=== PATIENT | male | born 1965 | race Caucasian/White ===

== ENCOUNTER 2016-06-27 05:48 | Day surgery (SDC) | payer OTHER ==
[2016-06-27] VITALS (14 sets, daily range): BP systolic 118–155; BP diastolic 68–98; PULSE 67–95; RESP 13–19; O2SAT 96–98
[~2016-06-27] VITALS: Ht 170.2 cm; Wt 130.4 kg
[2016-06-27] MEDS: Lactated Ringer's 1,000 ML IV SCH ×3 (05:00→07:32)
[~2016-06-27 05:48] MED LIST: LISI-567 PO
[2016-06-27] MEDS ORDERED: Ondansetron 2 mg/mL 2 mL Inj ONE (05:49)
[2016-06-27] MEDS ORDERED: Dexamethasone 4 mg/mL Inj ONE (05:49)
[2016-06-27] MEDS ORDERED: fentaNYL-PF 50 mCg/mL 2 mL Inj ONE (05:49)
[2016-06-27] MEDS ORDERED: Lidocaine PF 1% 30 mL Inj ONE (05:49)
[2016-06-27] MEDS ORDERED: Propofol 10,000 mCg/mL 20 mL Inj ONE (05:49)
[2016-06-27] MEDS ORDERED: Vancomycin Inj 1,000 MG in IV Premix 1 EACH IV ONE (06:00)
[2016-06-27] MEDS ORDERED: CeFAZolin Inj 3 GM in IV Premix 1 EACH IV ONE (06:00)
--- NOTE | 2016-06-27 07:19 | PCM.HPANE ---
Patient Data Date of Service: June 27, 2016 Surgeon Admitting Provider: Attending Provider:Jeff Celis DO Primary Care Physician:Other,Physician Other Provider:Barney Fragoso Anesthesia Reason for Visit Right Knee Medial Arthritis Ht/WT & BMI Height (Feet): 5 Height (Inches): 7.00 Weight (Kilograms): 120.8 Body Mass Index 41.00 Allergies Coded Allergies: Penicillins (Verified Allergy, Unknown, UNKNOWN, 12/31/15) Past Anesthesia History Anesthesia History: Denies:: Abnormal Airway, Anesthesia Reactions, Difficult Intubation, Fam Anesthesia Reaction, Fam Malignant Hypertherm, Malignant Hyperthermia Diabetes History Hx Diabetes?: No MRSA MRSA: No Medications Hypertension Medication: Yes Home Meds Incl Beta Toshia: No Reported Medications Lisinopril 20 Mg [id number] Mg PO DAILY 30 Days Ref 0 06/22/16 Discontinued Reported Medications Lisinopril 20 Mg [id number] Mg PO DAILY 30 Days Ref 0 12/31/15 History History of ENT Problems?: No HEENT History: Denies:: Abnormal Airway Difficult Intubation Denture Type: None Teeth Condition: Within Normal Limits Hx of Heart Problems?: Yes Cardiovascular History: Positive for:: Hypertension Denies:: AICD Heart Murmur Irregular Heartbeat Pacemaker Valvular Heart Disease Hx of Respiratory Problem?: No Respiratory History: Denies:: Asthma COPD Emphysema Use of C-PAP Machine Hx Neurologic Problems?: No Neurological History: Denies:: CVA Multiple Sclerosis Parkinson's Disease Seizures Hx of GI Problems?: No Hx of Problems?: No Genitourinary History: Denies:: Kidney Stones Urinary Tract Infection Male Hx: Denies:: Prostate Problems Scrotal Mass Testicular Surgery Skin History: Denies:: History Skin Disorders? Pressure Ulcers Hx Musculoskeletal Problems?: Yes Musculoskeletal History: Positive for:: Back Injury (lami C6-7) Degenerative Joint Joint Replacement (left uni knee done here 12/2015) Musculoskeletal Trauma (right knee current admission problem) Osteoarthritis Hx of Psycho/Social Problems?: No Hx Surgeries?: Yes (CARPAL TUNNELS, LASIK, C6 LAMINECTOMY, left uni knee) Hx Any Other Health Problems?: Yes Other History: Denies:: Cancer Endocrine Disease Hospitalization Thyroid Disease History Blood Transfusions: Denies:: Blood Transfusions Hx Diabetes: No Hx Alcohol Use: NoHx Substance Use: No Smoking Status: Never Smoker Have You Smoked inLast 12 mo: No Stop/Bang S-Snoring: Do You Snore Loudly: Yes P-Blood Pressure: treated: Yes B- Body Mass Index > 35 kg/m2: Yes A- Age over 50: Yes N- Neck Large Circumference: Yes G- Gender Male: Yes PATSY Risk Assessment: High Risk, =/>3 Yes Risk Assessment Category Category 1A: Patient has history of documented sleep apnea, and HAS NOT received any narcotic, sedative or anesthesia administration during this stay. Category 1B: Patient has history of documented sleep apnea, and HAS received any narcotic , sedative or anesthesia administration during this stay Category 2: Patient has SUSPECTED Obstructive Sleep Apnea, and HAS received any narcotic , sedative or anesthesia administration during this stay. Category 3: Patient has SUSPECTED Obstructive Sleep Apnea and HAS NOT received narcotic, sedative or anesthesia administration during this stay. Category 4: Outpatient in Procedural Areas with known sleep apnea or who screen positive for High Risk via the STOP/BANG questionnaire. Exam Exam Vital Signs Vital Signs Date Time Temp Pulse Resp B/P Pulse Ox O2 Delivery O2 Flow Rate FiO2 06/27/16 06:26 36.9 67 16 127/79 97 Room Air General Appearance: Alert, Oriented X3, Cooperative, No Acute Distress HEENT/AIRWAY: MP 2 Lungs: Normal Air Movement Heart: Exam Unremarkable Meds/Labs/Diagnostics Admission Meds Current Medications Vancomycin/0.9 % Sod Chloride 1000 mg/Premix 200 ml @ 133.333 mls/hr PREOP ONCE IV Last administered on 06/27/16 06:22; Start 06/27/16 at 06:00; Stop at 07:29 Lactated Ringer's (Lr) 1,000 ml @ 120 mls/hr Q8H20M IV Last administered on 06:21; Start 06/27/16 at 05:00; Stop 06/27/16 at 13:19 Plan Impression Patient chart reviewed, patient interviewed and anesthestic plan with risks, benefits, and alternatives discussed, and informed consent obtained. ASA Physical Status: ASA2 Mod Systemic Disease Anesthetic Plan: GA Bene/Risks/Altern/Consents: Yes HP Complete Prior to Induction: Yes Eloy Quintero MD June 27, 2016 07:02
[2016-06-27] MEDS ORDERED: Bupivacaine Liposome 1.3% 20 mL Inj ONE (07:35)
[2016-06-27] MEDS ORDERED: Bupivacaine-MPF 0.5% W/EPI 30 mL Inj INFILTRATE ONE (07:45)
[2016-06-27] MEDS ORDERED: Bupivacaine Liposome 1.3% 20 mL Inj ARTICULAR ONE (07:45)
[2016-06-27] MEDS ORDERED: 0.9% Sodium Chloride 10 mL Inj INFILTRATE ONE (07:45)
[2016-06-27] MEDS ORDERED: Lactated Ringer's 1,000 ML IV SCH (07:57)
[2016-06-27] MEDS ORDERED: Lactated Ringer's 500 ML IV PRN (07:57)
[2016-06-27] MEDS ORDERED: MetoCLOpramide 5 mg/mL 2 mL Inj IVPUSH PRN (08:00)
[2016-06-27] MEDS ORDERED: Dexamethasone 4 mg/mL Inj IVPUSH PRN (08:00)
[2016-06-27] MEDS ORDERED: Labetalol 5 mg/mL 4 mL Inj IV PRN (08:00)
[2016-06-27] MEDS ORDERED: Ondansetron 2 mg/mL 2 mL Inj IVPUSH PRN ×2 (08:00→09:35)
[2016-06-27] MEDS ORDERED: Atropine 0.4 mg/mL Inj IVPUSH PRN (08:00)
[2016-06-27] MEDS ORDERED: HYDROmorphone 1 mg/mL Inj IVPUSH PRN ×2 (08:00→09:35)
[2016-06-27] MEDS ORDERED: EPHEDrine Sulfate 50 mg/mL Inj IVPUSH PRN (08:00)
[2016-06-27] MEDS ORDERED: Phenylephrine 10,000 mCg/mL Inj IVPUSH PRN (08:00)
[2016-06-27] MEDS ORDERED: diphenhydrAMINE 25 mg Capsule PO PRN (09:35)
[2016-06-27] MEDS ORDERED: Polyethylene Glycol (PEG) 17 Gm Powder PO PRN (09:35)
[2016-06-27] MEDS ORDERED: Magnesium Hydroxide 10 mL Oral Concentration PO PRN (09:35)
[2016-06-27] MEDS: fentaNYL-PF 50 mCg/mL 2 mL Inj IVPUSH PRN ×2 (10:06→11:15)
--- NOTE | 2016-06-27 10:09 | PCM.ANEP1 ---
Post Anesthesia Phase 1 PACU Phase 1 Assessment Date of Service: June 27, 2016 Vital Signs Vital Signs Date Time Temp Pulse Resp B/P Pulse Ox O2 Delivery O2 Flow Rate FiO2 06/27/16 09:55 90 13 149/88 98 Nasal Cannula 4 06/27/16 09:50 91 15 153/95 98 Nasal Cannula 4 06/27/16 09:45 36.5 88 14 155/81 98 Nasal Cannula 4 06/27/16 06:26 36.9 67 16 127/79 97 Room Air Anesthetic Administered: GA Level of Alertness: Sleepy, easy to arouse ADAN's with Equal Strength: Yes Pain: No Nausea or Vomiting: No Cardiovascular Function and Hy: Yes Oxygen Delivery: Simple Mask Lungs: Normal Air Movement Complications: No Eloy Quintero MD June 27, 2016 10:09
--- NOTE | 2016-06-27 10:25 | OP ---
[address] [address] OPERATIVE REPORT PATIENT: LAN PAUL : 1965 MR#: [id number] ADMIT: 06/27/2016 JOB ID: [id number] DATE OF SURGERY: 06/27/2016 PREOPERATIVE DIAGNOSIS(ES): Right knee medial compartment degenerative arthritis. POSTOPERATIVE DIAGNOSIS(ES): Right knee medial compartment degenerative arthritis. PROCEDURE: Right knee medial compartment UNI. SURGEON: Jeff Celis DO ANESTHESIA: General. VISITOR INFORMATION ASSISTANT: Gaby Benoit PA-C. INDICATIONS: The patient is a 50-year-old male with right knee medial compartment degenerative arthritis which has failed conservative measures, and he has had a good result with his left medial compartment knee arthroplasty and wished to proceed with the right unicompartmental arthroplasty. We discussed the risks, benefits, and possible complications of surgery. All questions were answered and he wished to proceed. PROCEDURE IN DETAIL: The patient was brought to the operating room. He was given a preoperative antibiotic and general anesthetic. The right lower extremity was sterilely prepped and draped. A tourniquet was used for hemostasis. An incision was made over the anteromedial knee and dissection was carefully carried through subcutaneous tissue. The quad tendon was released slightly at the VMO area leaving a cuff of tissue for repair. This was taken along the medial retinaculum and a small portion of the meniscus was removed as well as a portion of the fat pad. A small portion of the patella was also resected in order to gain exposure and the ZUK extramedullary cutting guide was placed parallel to the long axis of the tibia with standard resection sleeve. This was pinned into position taking care to ensure this was parallel to the long axis of the tibia and the distal femoral cut was performed. Next, the femoral cutting block was removed and the tibial cutting block was pinned into position. The vertical and horizontal cuts were performed and the wafers of bone were then removed. I then clipped 2 sides of the tibia, however it was a bit narrow and I did some additional resection vertically and then sized the femur and felt to be a size E. Placed the cutting block in position, pinned it in position, and the distal femoral cuts were performed as well as the lug holes. The tibia was then placed and the lug holes were drilled. The knee was trialed and was a bit tight in flexion. There was some osteophytes which were removed which assisted in attaining more balanced knee. I also added a slight amount of slope with some additional resection, freehand using the saw. The bony surfaces were then washed and dried, and the components were cemented into position beginning with the [employer] ZUK 4 tibia followed by the E femur and a 9 mm E poly. All excess cement was removed. The tourniquet was let down and electrocautery was used for hemostasis. The wound was then closed with #1 Surgilon to repair the medial retinaculum and quad tendon. The subcu was closed with 2-0 Vicryl and the skin was closed with a running subcuticular 3-0 V-Loc suture. A mixture of Exparel, Marcaine, and saline 20/20/20 was added as an adjunct local anesthetic. Sterile dressings were applied. Patient tolerated the procedure well. BLOOD LOSS: 50 cc. POSTOPERATIVE PROTOCOL: Have the patient weight bear to tolerance. Use walker for ambulation or cane as needed. He was given a prescription for Percocet to use for pain postoperatively.
--- NOTE | 2016-06-27 12:10 | DRSVH ---
PROCEDURE: X-RAY RIGHT KNEE, ONE OR TWO VIEWS ([id number]) INDICATIONS: post op TECHNIQUE: 3 view(s) of the knee acquired. COMPARISON: None. FINDINGS: Bones: Patient is status post right zafar-knee joint arthroplasty. Hardware components are in expect ed positions. Visualized bony structures are intact. Soft tissues: Overlying postoperative changes are noted. IMPRESSION: Expected post operative changes. Dictated by: Lilia Tapia M.D. on 06/27/2016 at 12:08 Approved by: Lilia Tapia M.D. on 06/27/2016 at 12:09
--- NOTE | 2016-06-27 12:30 | NUR ---
POSTOP Pt comes from PACU A&OX4 with no pain at this time. SEAN wrap over Rt knee with ice pack over. Toes pink and warm, sensation in tact, wiggles toes. RA 97%. at bedside. Care continues
[2016-06-27] MEDS: oxyCODONE-Acetamin 5-325 mg Tablet PO PRN ×2 (14:17→17:24)
--- NOTE | 2016-06-27 15:58 | NUR ---
Evaluation completed. Please go to "Notes" then click on "Assessments and Notes" (bottom left corner of screen). Then select appropriate discipline tab on top of screen.
[2016-06-27] MEDS: CeFAZolin Inj 3 GM in IV Premix 1 EACH IV SCH (16:09)
[2016-06-27] MEDS: 0.9% Sodium Chloride 1,000 ML IV SCH ×2 (16:09→19:34)
[2016-06-27] MEDS: Sodium Chloride LOK Flush 10 mL Syringe IV SCH ×2 (16:23→20:22)
[2016-06-27] MEDS: hydrOXYzine Pamoate 25 mg Capsule PO PRN (17:22)
--- NOTE | 2016-06-27 18:30 | NUR ---
Pain P: Patient c/o pain 6/10 in right knee. I:Gave pain medication and ice pack E: Patient states pain is 3/10 S: Bed down and locked, call light in reach, pt will call if needed
[2016-06-27] MEDS: Senna-Docusate 8.6-50 mg Tablet PO SCH (20:22)
[2016-06-28 00:26] VITALS: BP 103/64; PULSE 73; RESP 18; O2SAT 97
[2016-06-28] MEDS: CeFAZolin Inj 3 GM in IV Premix 1 EACH IV SCH (01:55)
[2016-06-28] MEDS: oxyCODONE-Acetamin 5-325 mg Tablet PO PRN ×3 (02:01→11:49)
[2016-06-28] MEDS: hydrOXYzine Pamoate 25 mg Capsule PO PRN ×2 (02:01→08:13)
--- NOTE | 2016-06-28 02:14 | NUR ---
Pain/Activity Pt states pain is 4-7/10, rec'd percocet and vistaril x1 dose with + effects, ice packs in place. States 4/10 is tolerable. Pt up ambulating halls this shift. Urinating well but has yet to pass gas.
[2016-06-28 04:50] VITALS: BP 109/63; PULSE 65; RESP 16; O2SAT 99
[2016-06-28] MEDS: 0.9% Sodium Chloride 1,000 ML IV SCH (05:00)
[2016-06-28 06:10] LABS: BASOPHILS % (AUTO) 0.1 % (0-3); EOSINOPHILS % (AUTO) 0.2 % (0-5); MONOCYTES % (AUTO) 10.5 % (4-12); Mean Corpuscular Hemoglobin 29.8 pg (27.0-35.0); Mean Corpuscular Volume 87.7 fL (81-100); NEUTROPHILS % (AUTO) 76.9 % (40-74); Platelet Count 295 bil/L (150-400)
[2016-06-28] MEDS ORDERED: Magnesium Hydroxide 10 mL Oral Concentration PO PRN (06:50)
--- NOTE | 2016-06-28 08:08 | PCM.PNORTH ---
Subjective Date of Service: June 28, 2016 Visit Information: Reason for Visit Right Knee Medial Arthritis Surgery/Surgery Date RIGHT MEDIAL UNIKNEE 06/27/16 Post-Op Day # 1 Date of Admission: Hospital Day # Subjective Patient complains of incisional pain. He has been up independently to the bathroom. He has walked the hallways with therapy. He feels he is doing quite well. This is his second knee surgery. Postop General: No Shortness of Breath, No Chest Pain, Good Appetite Pain Management: PO Objective Exam Objective Patient is seen sitting up in bed Vital Signs and I/O Vital Sign - Last Date Time Temp Pulse Resp B/P Pulse Ox O2 Delivery O2 Flow Rate FiO2 06/28/16 04:50 36.9 65 16 109/63 99 Room Air 06/27/16 11:17 2 Intake and Output 06/27/16 06/27/16 06/28/16 Cumulative From/Thru 15:00 23:00 07:00 06/22/16 10:19 - 06/28/16 05:27 Intake Total 800 ml 800 ml 1275 ml 2875 ml Output Total 50 ml 800 ml 1430 ml 2280 ml Balance 750 ml 0 ml -155 ml 595 ml Intake Oral 800 ml 1200 ml 2000 ml IV Total 800 ml 75 ml 875 ml Output Urine Total 800 ml 1430 ml 2230 ml Estimated Blood Loss 50 ml 50 ml # Bowel Movements 0 0 0 Lab & Micro Results Laboratory Tests Test 06/28/16 05:30 White Blood Count 16.9th/mm3 (3.8-10.1) Red Blood Count 4.57mil/mm3 (4.40-5.80) Hemoglobin 13.6g/dL (13.8-17.2) Hematocrit 40.1% (41.0-50.0) Mean Corpuscular Volume 87.7fL (81-100) Mean Corpuscular Hemoglobin 29.8pg (27.0-35.0) Mean Corpuscular Hemoglobin Concent 33.9% (32.0-37.0) Red Cell Distribution Width 13.5% (12.3-15.4) Platelet Count 295bil/L (150-400) Neutrophils (%) (Auto) 76.9% (40-74) Lymphocytes (%) (Auto) 11.9% (14-46) Monocytes (%) (Auto) 10.5% (4-12) Eosinophils (%) (Auto) 0.2% (0-5) Basophils (%) (Auto) 0.1% (0-3) Sodium Level 135mEq/L (134-144) Potassium Level 4.7mEq/L (3.5-5.2) Chloride Level 99mEq/L (97-108) Carbon Dioxide Level 23mmol/L (18-29) Blood Urea Nitrogen 16mg/dL (6-24) Creatinine 0.93mg/dL (0.76-1.27) Estimat Glomerular Filtration Rate 91mL/min (>59) Glucose Level 118mg/dL (60-99) Calcium Level 8.7mg/dL (8.5-10.1) Result Diagram: 06/28/1652906/28/16529 General Appearance: Alert, Oriented X3, Cooperative, No Acute Distress Extremities: Distal Pulses Palpable, No Compartment Syndrom Noted, Thigh & Calf Soft/Nontender Postop Sensory Motor: Distal Motor Intact, NVI Distally SURGICAL WOUND : Wound Location/Description Surgical dressing is clean, dry and intact. Activity: Activity per PT, Ambulate with PT Catheters: None Assessment & Plan Impression Status post right knee medial unicompartmental arthroplasty Problems: Plan Weightbearing: Weightbearing as tolerated DVT prophylaxis: Enteric-coated aspirin 325 mg twice a day 6 weeks Physical therapy this morning for transfers, progressive ambulation, therapeutic exercise Wound care: Patient will change dressing tomorrow. Discharge plan: Discharge home today. Start outpatient physical therapy next week Discharge instructions reviewed with patient Follow-up plan: In 2 weeks at [facility] with SOREN for wound check and at [address] Celis with x-rays Pain Management: Percocet, Toradol, Vistaril VTE Prophylaxis: SCDs, Other (aspirin 325 mg twice a day) Resuscitation Status: CPR: Attempt Resuscitation [place] June 28, 2016 08:07
[2016-06-28] MEDS: Senna-Docusate 8.6-50 mg Tablet PO SCH (08:15)
[2016-06-28] MEDS: Sodium Chloride LOK Flush 10 mL Syringe IV SCH (08:15)
--- NOTE | 2016-06-28 09:34 | PCM.DIOPOR ---
OP Ortho Discharge Instruction Dates of Hospitalization Date of Discharge: June 28, 2016 Providers Admitting Physician: Primary Care Physician: Other,Physician Attending Physician: Jeff Celis DO Diagnosis at Time of Discharge Post operative diagnosis Status post right knee medial unicompartmental arthroplasty Diet Discharge Diet: No restrictions Activity Activity-General: Be up and about, Balance rest and activity, Elevate & ice extremity Right Lower Extremity: Weight Bearing as tolerated Discharge Assist Device: Front Wheeled Walker Dressing and Incisional Care Dressing Care: Keep dressing clean, dry & intact Hygiene: May shower (see instructions below) Additional Instructions Discharge Instructions Weightbearing: Weightbearing as tolerated DVT prophylaxis: Enteric-coated aspirin 325 mg twice a day 6 weeks Increase your activity a little more each day. Push yourself with bending the knee more each day. Ice the knee 6-10 times a day Every hour of the day that you are awake, get up and do some activity for your knee - walking or home exercises On , 06/29/2016 the patient may shower if the wound has no drainage present. Wound may be uncovered to shower. Let soap and water run over the wound , pat dry and apply a new dressing. If there is drainage present, cover the knee with plastic wrap to shower. Start outpatient physical therapy next week Follow Up Plan Follow Up Plan Follow-up plan: In 2 weeks at [facility] with SOREN for wound check and at [address] Celis with x-rays Call your provider for: Fever, Chills, Shortness of breath, Vomitting, Drainage at incision, Wound redness (that is spreading), Increasing pain (for no reason) Sandra Benoit PA-C June 28, 2016 09:34
--- NOTE | 2016-06-28 09:46 | PCM.DC.ORT ---
Discharge Summary Date of Service: June 28, 2016 Date of Hospital Admission: Date of Surgery: June 27, 2016 Date of Discharge: June 28, 2016 Reason for Hospitalization: Right knee arthritis Procedures Performed: Right knee medial unicompartmental arthroplasty Hospital Course: The patient was admitted to the hospital on 06/27/2016 and underwent the above procedure. Antibiotic prophylaxis consisting of Ancef and vancomycin. The surgeon was Dr. Celis. Patient tolerated the procedure well and was transferred to recovery room in stable condition. Patient was transferred to [facility] Patient had physical therapy to work on ambulation and transfers. Weightbearing as tolerated with walker. Pain was managed with Dilaudid, Percocet, Vistaril, Toradol. DVT prophylaxis: Aspirin 325 mg twice a day. Patient progressed well with physical therapy and on POD-1 was discharged home in stable condition. Follow-up: at [facility] 2 weeks postop for wound check and at [address] Celis with x-ray Diagnosis at Time of Discharge Status post right knee medial unicompartmental arthroplasty Problems: Discharge Instructions: Weightbearing: Weightbearing as tolerated DVT prophylaxis: Enteric-coated aspirin 325 mg twice a day 6 weeks Increase your activity a little more each day. Push yourself with bending the knee more each day. Ice the knee 6-10 times a day Every hour of the day that you are awake, get up and do some activity for your knee - walking or home exercises On , 06/29/2016 the patient may shower if the wound has no drainage present. Wound may be uncovered to shower. Let soap and water run over the wound , pat dry and apply a new dressing. If there is drainage present, cover the knee with plastic wrap to shower. Start outpatient physical therapy next week ([Aspirin-Expunged Drug, Do Not Renew!]) 325 MG TABLET 325 MG PO BID Hydroxyzine Pamoate (HydrOXYzine Pamoate) 25 Mg Capsule 25 MG PO Q6H PRN PRN For Spasm and/or Restlessness Lisinopril (Lisinopril) 20 Mg Tablet 20 MG PO DAILY oxyCODONE-Acetaminophen 5-325 mg (oxyCODONE-Acetaminophen 5-325 mg) 1 Each Tablet 1-2 TAB PO Q4H PRN PRN For Pain Max 8 per day Sandra Benoit PA-C June 28, 2016 09:46
[2016-06-28] MEDS ORDERED: HYDR-3797 PO (10:06)
[2016-06-28] MEDS ORDERED: Aspirin-Expunged Drug, Do Not Renew! PO (10:06)
[2016-06-28] MEDS ORDERED: OXYC1TAB24 PO (10:06)
--- NOTE | 2016-06-28 11:58 | NUR ---
Discharge Patient left unit at 1157 via wheelchair with . Patient educated on all medications and care of incision and dressing, patient states he understands all information. Extra dressing supplies sent with patient. All belongings with patient.
== END 2016-06-28 12:00 | disposition home or self-care (01) ==
LOC: SAS 05:48 → OSC 12:50 → SAS 06-28 12:00
PROVIDERS: ATTEND Orthopaedic Surgery
DX: M17.11 Unilateral primary osteoarthritis, right knee (principal); M25.561 Pain in right knee; I10 Essential (primary) hypertension
CPT/HCPCS: 27446; 36415; 73560; 80048; 85025; 97116; 97162; 97165; C1713; C1776; J0690; J1100; J1885; J2250; J2405; J3010; J3370; J7030; J7120; Q0177